=== PATIENT | male | born 1960 | race American Indian/Alaskan Native ===

== ENCOUNTER 2018-12-16 12:28 | Emergency (ER) | payer OTHER ==
[2018-12-16] MEDS ORDERED: PEPCID PO ONE (12:41)
[2018-12-16] MEDS ORDERED: BENADRYL PO ONE (12:41)
--- NOTE | 2018-12-16 12:41 | Event Note ---
ED Screening Note ED Screening Note: pt presents with right facial edema that began yesterday morning denies any dental pain, states he has dentures on the top no allergies to meds no new foods, no new soaps, no new detergents has not taken anything at all states he has titanium in his face from 2000 PMHx DM This initial assessment/diagnostic orders/clinical plan/treatment(s) is/are subject to change based on patients health status, clinical progression and re- assessment by fellow clinical providers in the ED. Further treatment and workup at subsequent clinical providers discretion. Patient/guardian urged not to elope from the ED as their condition may be serious if not clinically assessed and managed. Initial orders include: benadryl, pepcid ordered
[2018-12-16] MEDS ORDERED: TORADOL IV ONE (15:11)
--- NOTE | 2018-12-16 15:27 | Emergency Department Report ---
ED General Adult HPI - General Chief complaint: Headache Stated complaint: FACIAL SWOLLEN Time Seen by Provider: 12/16/18 12:37 Source: patient Mode of arrival: Ambulatory Limitations: No Limitations - History of Present Illness Initial comments: 57-year-old male comes in for complaint of right-sided facial pain and swelling since yesterday morning. Patient was having a metal plate in his right side of his head for years. Patient denies any nausea vomiting no fever. Patient's taken nothing for pain. Patient does have a past medical history diabetes is currently on insulin 7030. Onset/Timin -: days(s) Location: face (right side) Severity scale (0 -10): 10 Quality: stabbing, aching, sharp Improves with: none Associated Symptoms: denies other symptoms. denies: fever/chills, loss of appetite, nausea/vomiting Treatments Prior to Arrival: none - Related Data Home Medications Medication Instructions Recorded Confirmed Last Taken metFORMIN [Glucophage] 500 mg PO BID 04/24/16 04/24/16 Unknown Previous Rx's Medication Instructions Recorded Last Taken Type Famotidine [Pepcid] 20 mg PO BID #60 tablet 04/26/16 Unknown Rx Insulin NPH/Regular [NovoLIN 70/30] 20 unit SUB-Q BIDDIAB 30 Days 04/26/16 Unknown Rx units Clindamycin [Clindamycin CAP] 150 mg PO Q8HR PRN 10 Days #30 12/16/18 Unknown Rx capsule Ibuprofen [Motrin 800 MG tab] 800 mg PO Q8HR PRN 10 Days #30 12/16/18 Unknown Rx tablet Allergies Allergy/AdvReac Type Severity Reaction Status Date / Time No Known Allergies Allergy Unverified 04/24/16 17:15 ED Review of Systems ROS: Stated complaint: FACIAL SWOLLEN Other details as noted in HPI Comment: All other systems reviewed and negative Constitutional: denies: chills, fever ED Past Medical Hx - Past Medical History Previous Medical History?: Yes Hx Diabetes: Yes - Surgical History Past Surgical History?: Yes Additional Surgical History: Metal plate to right side of head. - Social History Smoking Status: Current Every Day Smoker Substance Use Type: Alcohol - Medications Home Medications: Home Medications Medication Instructions Recorded Confirmed Last Taken Type metFORMIN [Glucophage] 500 mg PO BID 04/24/16 04/24/16 Unknown History Famotidine [Pepcid] 20 mg PO BID #60 tablet 04/26/16 Unknown Rx Insulin NPH/Regular [NovoLIN 70/30] 20 unit SUB-Q BIDDIAB 30 Days 04/26/16 Unknown Rx units Clindamycin [Clindamycin CAP] 150 mg PO Q8HR PRN 10 Days #30 12/16/18 Unknown Rx capsule Ibuprofen [Motrin 800 MG tab] 800 mg PO Q8HR PRN 10 Days #30 12/16/18 Unknown Rx tablet ED Physical Exam - General Limitations: No Limitations General appearance: alert, in no apparent distress - Head Head exam: Present: atraumatic, normocephalic - Eye Eye exam: Present: normal appearance, EOMI - ENT ENT exam: Present: mucous membranes moist - Neck Neck exam: Present: normal inspection, full ROM - Respiratory Respiratory exam: Present: normal lung sounds bilaterally. Absent: respiratory distress - Cardiovascular Cardiovascular Exam: Present: regular rate, normal rhythm. Absent: systolic murmur, diastolic murmur, rubs, gallop - Neurological Exam Neurological exam: Present: alert, oriented X3 - Psychiatric Psychiatric exam: Present: normal affect, normal mood - Skin Skin exam: Present: warm, dry, intact, normal color. Absent: rash ED Course Vital Signs 12/16/18 12/16/18 12:38 15:33 Temperature 98.6 F Pulse Rate 96 H Respiratory 18 18 Rate Blood Pressure 168/93 O2 Sat by Pulse 100 Oximetry ED Medical Decision Making - Lab Data Result diagrams: 12/16/18 15:33 12/16/18 15:33 - Medical Decision Making 87-year-old male comes in with right-sided facial swelling. CT scan shows no concern for abscess but does show some soft tissue swelling with some lymph node reaction. Patient was given Toradol injection of 30 mg IM. Patient will be given IV clindamycin 300 mg. Patient be discharged home on clindamycin 150 mg 3 times a day for 10 days patient's [facility] Patient to take Tylenol and/or Motrin for pain management. Patient to follow-up with his own primary care provider Critical care attestation.: If time is entered above; I have spent that time in minutes in the direct care of this critically ill patient, excluding procedure time. ED Disposition Clinical Impression: Cellulitis, face Disposition: [id number] TO HOME OR SELFCARE Is pt being admited?: No Does the pt Need Aspirin: No Condition: Stable Instructions: Cellulitis (ED) Additional Instructions: Take antibiotics as prescribed pain medication as needed. Prescriptions: Clindamycin [Clindamycin CAP] 150 mg PO Q8HR PRN 10 Days #30 capsule PRN Reason: Pain , Severe (7-10) Ibuprofen [Motrin 800 MG tab] 800 mg PO Q8HR PRN 10 Days #30 tablet PRN Reason: Pain , Severe (7-10) Referrals: ROBERTO MERAZ MD [Primary Care Provider] - 3-5 Days Forms: Work/School Release Form(ED)
[2018-12-16 15:43] LABS: Basophils # (Auto) 0.1 K/mm3 (0.0-0.1); Basophils % (Auto) 0.7 % (0.0-1.8); Eosinophils # (Auto) 0.4 K/mm3 (0.0-0.4); Eosinophils % (Auto) 2.9 % (0.0-4.3); Hematocrit 43.8 % (35.5-45.6); Lymphocytes % (Auto) 24.3 % (13.4-35.0); Mean Corpuscular HGB Conc 32 % (32-34); Mean Corpuscular Volume 72 fl (84-94); Monocytes # (Auto) 0.8 K/mm3 (0.0-0.8); Monocytes % (Auto) 6.8 % (0.0-7.3); Platelet Count 237 K/mm3 (140-440); Red Cell Distribution Width 15.1 % (13.2-15.2)
[2018-12-16 16:08] LABS: Alanine Aminotransferase 14 units/L (7-56); Albumin 4.1 g/dL (3.9-5); BUN/Creatinine Ratio 11; Blood Urea Nitrogen 9 mg/dL (9-20); Calcium 9.9 mg/dL (8.4-10.2); Hemolysis Index 23
--- NOTE | 2018-12-16 18:17 | Cat Scan Report ---
CT facial bones w con INDICATION: facial swelling. 57-year-old male TECHNIQUE: Thin cut axial images obtained to the facial bones following contrast. Sagittal and coronal reconstru ctions performed by the technologist. All CT scans at this location are performed using CT dose reduc tion for ALARA by means of automated exposure control. COMPARISON: None available. FINDINGS: Significant soft tissue swelling seen in the right malar region extending inferiorly, superficial to the mandible, along its anterior margin, as well as the right body. No definitive signs of fluid adama ection identified to suggest abscess formation. There is extremely poor dentition present. Mild mucosal thickening seen in the ethmoids. Mild to moderate mucosal thickening seen in the right m axillary antrum. Prior plating seen along the lateral orbit on the right, as well as along the anterior margin of the right maxillary antrum. Prominent level 1 and level 2 lymph node seen bilaterally, which are presumably reactive. No suppurat ruel lymph node appreciated. There is presumed mixing of contrast in the right jugular venous region, proximally. There is facet hypertrophy on the left at C2 - 3 -- moderate to marked in degree. IMPRESSION: 1. Soft tissue facial swelling as described above. No definitive signs of abscess formation appreciat ed. Signer Name: Marcel Mistry MD, III Signed: 12/16/2018 6:13 PM Workstation Name: [id number]
[2018-12-16] MEDS ORDERED: CLEOCIN 300 MG/50 mL 300 MG/50 ML BAG IV ONE (18:42)
[2018-12-16 21:10] VITALS: BP 180/99
== END 2018-12-16 21:10 | disposition home or self-care (01) ==
LOC: ED 12:28
DX: L03.211 Cellulitis of face (principal); E11.9 Type 2 diabetes mellitus without complications; F17.200 Nicotine dependence, unspecified, uncomplicated; Z79.4 Long term (current) use of insulin; Z79.899 Other long term (current) drug therapy
CPT/HCPCS: 36415; 70487; 80053; 82962; 85025; 96365; 96375; 99284; J1885; Q9967